=== PATIENT | female | born 1980 | race Caucasian/White ===

== ENCOUNTER 2016-02-26 11:16 | Outpatient (CLI) | payer MEDICAID | END 2016-02-26 11:17 | disposition home or self-care (01) | DX: Z13.29 Encounter for screening for other suspected endocrine disorder (principal) ==

== ENCOUNTER 2016-04-29 09:29 | Outpatient (CLI) | payer MEDICAID | END 2016-04-29 09:30 | disposition home or self-care (01) | DX: O13.9 Gestational [pregnancy-induced] hypertension without significant proteinuria, unspecified trimester (principal); E78.5 Hyperlipidemia, unspecified; E03.9 Hypothyroidism, unspecified ==

== ENCOUNTER 2016-06-30 08:58 | Outpatient (CLI) | payer OTHER ==
[2016-06-30 10:45] LABS: BASOPHILS # (AUTO) 0.1 10^3/uL (0.0-0.1); EOSINOPHILS # (AUTO) 0.2 10^3/uL (0.0-0.7); EOSINOPHILS % (AUTO) 3.1 %; HCT - HEMATOCRIT 36.9 % (37.0-47.0); LYMPHOCYTES # (AUTO) 1.5 10^3/uL (1.5-3.5); LYMPHOCYTES % (AUTO) 28.2 %; MEAN CORPUSCULAR HEMOGLOBIN 33.2 pg (27.0-31.0); MEAN CORPUSCULAR HGB CONC 35.1 g/dL (32.0-36.0); MEAN CORPUSCULAR VOLUME 94.8 fL (81.0-99.0); MEAN PLATELET VOLUME 9.6 fL (7.9-10.8); MONOCYTES # (AUTO) 0.4 10^3/uL (0.0-1.0); MONOCYTES % (AUTO) 7.6 %; NEUTROPHILS # (AUTO) 3.1 10^3/uL (1.5-6.6); NEUTROPHILS % (AUTO) 60.1 %; RED CELL DISTRIBUTION WIDTH 13.1 % (12.0-15.0); UNCORRECTED WHITE BLOOD COUNT 5.2 x10^3/uL; WHITE BLOOD COUNT 5.2 x10^3/uL (4.8-10.8)
[2016-06-30 10:54] LABS: BILIRUBIN,DIRECT 0.1 mg/dL (0.1-0.5); BILIRUBIN,TOTAL 0.5 mg/dL (0.2-1.0); CHOL/HDL RATIO 3.5 (<4.4); CHOLESTEROL 188 mg/dL; HDL CHOLESTEROL 54 mg/dL; IRON 97 ug/dL (28-170); LDL/HDL RATIO 1.9 (<4.4); TOTAL IRON BINDING CAPACITY 392 ug/dL (250-450); TOTAL PROTEIN 7.2 g/dL (6.7-8.2); TRANSFERRIN 280 mg/dL (192-382); TRIGLYCERIDES 168 mg/dL; VLDL CHOLESTEROL 34 mg/dL
== END 2016-06-30 08:59 | disposition home or self-care (01) ==
LOC: LAB.F 08:58
PROVIDERS: ATTEND Nurse Practitioner Family
DX: E78.5 Hyperlipidemia, unspecified (principal); D64.9 Anemia, unspecified
CPT/HCPCS: 36415; 80061; 80076; 82728; 83540; 84466; 85025

== ENCOUNTER 2017-03-09 07:39 | Outpatient (CLI) | payer OTHER ==
[2017-03-09 12:11] LABS: BASOPHILS % (AUTO) 0.6 %; EOSINOPHILS # (AUTO) 0.1 10^3/uL (0.0-0.7); EOSINOPHILS % (AUTO) 1.8 %; LYMPHOCYTES # (AUTO) 2.3 10^3/uL (1.5-3.5); LYMPHOCYTES % (AUTO) 33.3 %; MEAN CORPUSCULAR HEMOGLOBIN 33.2 pg (27.0-31.0); MEAN CORPUSCULAR HGB CONC 34.9 g/dL (32.0-36.0); MEAN CORPUSCULAR VOLUME 95.1 fL (81.0-99.0); MEAN PLATELET VOLUME 9.3 fL (7.9-10.8); MONOCYTES # (AUTO) 0.4 10^3/uL (0.0-1.0); NEUTROPHILS % (AUTO) 58.3 %; PLT - PLATELET COUNT 318 10^3/uL (130-450); RED BLOOD COUNT 3.92 10^6/uL (4.20-5.40); RED CELL DISTRIBUTION WIDTH 12.6 % (12.0-15.0); WHITE BLOOD COUNT 6.9 x10^3/uL (4.8-10.8)
[2017-03-09 12:41] LABS: THYROID STIMULATING HORMONE 0.53 uIU/mL (0.34-5.60)
[2017-03-09 12:42] LABS: FREE T4 (FREE THYROXINE) 0.91 ng/dL (0.58-1.64)
[2017-03-09 12:44] LABS: ALBUMIN 4.2 g/dL (3.2-5.5); ALBUMIN/GLOBULIN RATIO 1.4 (1.0-2.2); ALKALINE PHOSPHATASE 52 IU/L (42-121); ALT ALANINE AMINOTRANSFERASE 11 IU/L (10-60); AST ASPARTATE AMINOTRANSFERASE 15 IU/L (10-42); BILIRUBIN,TOTAL 0.6 mg/dL (0.2-1.0); BUN - BLOOD UREA NITROGEN 19 mg/dL (6-20); CALCIUM 8.9 mg/dL (8.5-10.3); CARBON DIOXIDE - CO2 26 mmol/L (21-32); CHLORIDE 104 mmol/L (101-111); CHOL/HDL RATIO 5.3 (<4.4); CHOLESTEROL 310 mg/dL; CREATININE 0.6 mg/dL (0.4-1.0); GFR - MDRD 112 (>89); GLUCOSE 92 mg/dL (70-100); HDL CHOLESTEROL 59 mg/dL; LDL CHOLESTEROL,CALCULATED 194 mg/dL; LDL/HDL RATIO 3.3 (<4.4); SODIUM 136 mmol/L (135-145); TOTAL PROTEIN 7.2 g/dL (6.7-8.2); VLDL CHOLESTEROL 57 mg/dL
== END 2017-03-09 07:40 | disposition home or self-care (01) ==
LOC: LAB.F 07:39
PROVIDERS: ATTEND Nurse Practitioner Family
DX: R53.83 Other fatigue (principal); E78.5 Hyperlipidemia, unspecified; E03.9 Hypothyroidism, unspecified
CPT/HCPCS: 36415; 80053; 80061; 83721; 84439; 84443; 85025

== ENCOUNTER 2017-03-24 09:00 | Outpatient (CLI) | payer OTHER | END 2017-03-24 09:01 | disposition home or self-care (01) | LOC: LAB.R 09:00 | PROVIDERS: ATTEND Nurse Practitioner Family | DX: D64.9 Anemia, unspecified (principal) | CPT/HCPCS: 82270 ==

== ENCOUNTER 2017-04-02 13:17 | Outpatient (CLI) | payer OTHER | END 2017-04-02 13:18 | disposition home or self-care (01) | LOC: LAB.R 13:17 | PROVIDERS: ATTEND Registered Nurse | DX: Z30.430 Encounter for insertion of intrauterine contraceptive device (principal) | CPT/HCPCS: 87491; 87591 ==

== ENCOUNTER 2017-05-12 12:14 | Outpatient (CLI) | payer OTHER ==
[2017-05-12 13:23] LABS: ALBUMIN 4.7 g/dL (3.2-5.5); ALKALINE PHOSPHATASE 77 IU/L (42-121); ALT ALANINE AMINOTRANSFERASE 22 IU/L (10-60); AST ASPARTATE AMINOTRANSFERASE 20 IU/L (10-42); BILIRUBIN,DIRECT 0.1 mg/dL (0.1-0.5); BILIRUBIN,TOTAL 0.7 mg/dL (0.2-1.0); CHOL/HDL RATIO 2.5 (<4.4); CHOLESTEROL 109 mg/dL; HDL CHOLESTEROL 44 mg/dL; LDL CHOLESTEROL,CALCULATED 43 mg/dL; TOTAL PROTEIN 7.4 g/dL (6.7-8.2); VLDL CHOLESTEROL 22 mg/dL
[2017-05-12 14:10] LABS: THYROID STIMULATING HORMONE < 0.08 uIU/mL (0.34-5.60)
[2017-05-12 14:38] LABS: FOLLICLE STIMULATING HORMONE 5.26 mIU/mL
[2017-05-12 14:39] LABS: LUTEINIZING HORMONE 4.61 mIU/mL
== END 2017-05-12 12:15 | disposition home or self-care (01) ==
LOC: LAB 12:14
PROVIDERS: ATTEND Registered Nurse
DX: N95.1 Menopausal and female climacteric states (principal); E78.5 Hyperlipidemia, unspecified
CPT/HCPCS: 80061; 80076; 82670; 83001; 83002; 83721; 84443

== ENCOUNTER 2017-05-28 10:43 | Outpatient (CLI) | payer OTHER ==
[2017-05-28 12:19] LABS: T4 (THYROXINE) 8.15 ug/dL (6.09-12.23)
[2017-05-28 12:26] LABS: FREE T4 (FREE THYROXINE) 0.82 ng/dL (0.58-1.64)
== END 2017-05-28 10:44 | disposition home or self-care (01) ==
LOC: LAB 10:43
PROVIDERS: ATTEND Registered Nurse
DX: E07.9 Disorder of thyroid, unspecified (principal)
CPT/HCPCS: 36415; 84436; 84439; 86376; 86800

== ENCOUNTER 2017-06-26 09:39 | Outpatient (CLI) | payer OTHER ==
[2017-06-26 10:55] LABS: T4 (THYROXINE) 7.33 ug/dL (6.09-12.23)
[2017-06-26 10:59] LABS: THYROID STIMULATING HORMONE 1.82 uIU/mL (0.34-5.60)
[2017-06-26 11:02] LABS: FREE T4 (FREE THYROXINE) 0.59 ng/dL (0.58-1.64)
== END 2017-06-26 09:40 | disposition home or self-care (01) ==
LOC: LAB 09:39
PROVIDERS: ATTEND Registered Nurse
DX: E03.8 Other specified hypothyroidism (principal)
CPT/HCPCS: 36415; 84436; 84439; 84443

== ENCOUNTER 2019-03-09 15:06 | Outpatient (CLI) | payer OTHER ==
[2019-03-09 17:21] LABS: BASOPHILS % (AUTO) 0.6 %; EOSINOPHILS # (AUTO) 0.1 10^3/uL (0.0-0.7); EOSINOPHILS % (AUTO) 2.1 %; HGB - HEMOGLOBIN 12.6 g/dL (12.0-16.0); LYMPHOCYTES # (AUTO) 1.7 10^3/uL (1.5-3.5); LYMPHOCYTES % (AUTO) 27.3 %; MEAN CORPUSCULAR HGB CONC 32.7 g/dL (32.0-36.0); MEAN CORPUSCULAR VOLUME 97.7 fL (81.0-99.0); MEAN PLATELET VOLUME 11.6 fL (7.9-10.8); MONOCYTES # (AUTO) 0.3 10^3/uL (0.0-1.0); MONOCYTES % (AUTO) 5.3 %; NEUTROPHILS % (AUTO) 64.2 %; PLT - PLATELET COUNT 324 10^3/uL (130-450); RED BLOOD COUNT 3.94 10^6/uL (4.20-5.40); RED CELL DISTRIBUTION WIDTH 11.8 % (12.0-15.0); WHITE BLOOD COUNT 6.3 x10^3/uL (4.8-10.8)
[2019-03-09 18:13] LABS: ALBUMIN 4.6 g/dL (3.2-5.5); ALBUMIN/GLOBULIN RATIO 1.7 (1.0-2.2); BILIRUBIN,TOTAL 0.6 mg/dL (0.2-1.0); CALCIUM 9.1 mg/dL (8.5-10.3); CREATININE 0.7 mg/dL (0.4-1.0); TOTAL PROTEIN 7.3 g/dL (6.7-8.2)
== END 2019-03-09 15:07 | disposition home or self-care (01) ==
LOC: LAB.S 15:06
PROVIDERS: ATTEND Nurse Practitioner Family
DX: R42 Dizziness and giddiness (principal)
CPT/HCPCS: 36415; 80053; 84443; 85025

== ENCOUNTER 2021-06-29 08:00 | Outpatient (CLI) | payer OTHER ==
[2021-06-29 21:13] LABS: BACTERIAL VAGINOSIS DNA NEGATIVE (NEGATIVE); CANDIDA GLABRATA DNA NEGATIVE (NEGATIVE); CANDIDA GROUP DNA NEGATIVE (NEGATIVE); CANDIDA KRUSEI DNA NEGATIVE (NEGATIVE); TRICHOMONAS VAGINALIS DNA NEGATIVE (NEGATIVE)
== END 2021-06-29 23:59 | disposition home or self-care (01) ==
LOC: LAB.S 08:00
PROVIDERS: ATTEND Physician Assistant
DX: R10.9 Unspecified abdominal pain (principal); N89.8 Other specified noninflammatory disorders of vagina
CPT/HCPCS: 81514; 87086

== ENCOUNTER 2021-12-29 08:53 | Emergency (ER) | payer OTHER ==
--- NOTE | 2021-12-29 10:24 | ED Physician Documentation ---
PD HPI URI - Stated complaint Stated Complaint: EAR PX - Chief complaint Chief Complaint: Heent - History obtained from History obtained from: Patient - Additional information Additional information: Pt is a 41 yo F presenting with ongoing sinus congestion for few weeks. She had URI symptoms recently and then developed sinus infection. She completed a course of Bactrim a week ago but her sinus symptoms have not resolved and now she is feeling pressure and fullness in both ears. Reports ongoing nasal congestion. Denies fever, cough, CP, SOB. Review of Systems Constitutional: denies: Fever Ears: reports: Ear pain Cardiac: denies: Chest pain / pressure Respiratory: denies: Dyspnea, Cough GI: denies: Abdominal Pain Musculoskeletal: denies: Back pain Neurologic: denies: Headache PD PAST MEDICAL HISTORY - Past Medical History Endocrine/Autoimmune: HyPOthyroidism GI: GERD Psych: Depression, Anxiety - Past Surgical History Past Surgical History: Yes HEENT: Tonsil/Adenoidectomy - Present Medications Home Medications: Ambulatory Orders Medication Instructions Recorded Confirmed Escitalopram [Lexapro] 10 mg PO DAILY 12/29/21 12/29/21 Losartan Potassium 25 mg PO DAILY 12/29/21 12/29/21 levoFLOXacin [Levaquin] 750 mg PO DAILY 7 Days #21 tablet 12/29/21 - Allergies Allergies/Adverse Reactions: Allergies Allergy/AdvReac Type Severity Reaction Status Date / Time amoxicillin AdvReac Nausea Verified 12/29/21 09:27 codeine AdvReac Nausea Verified 12/29/21 09:27 erythromycin base AdvReac Nausea Verified 12/29/21 09:27 Penicillins AdvReac Nausea Verified 12/29/21 09:27 - Social History Does the pt smoke?: No Smoking Status: Never smoker Does the pt drink ETOH?: No Does the pt have substance abuse?: No - Immunizations Immunizations are current?: Yes PD ED PE NORMAL - General General: Alert and oriented X 3, No acute distress, Well developed/nourished - HEENT HEENT: Atraumatic, Ears normal, Moist mucous membranes, Pharynx benign, Other (Maxillary sinus fullness and tenderness) - Neck Neck: Supple, no meningeal sign - Cardiac Cardiac: RRR - Respiratory Respiratory: No respiratory distress, Clear bilaterally - Derm Derm: Warm and dry Results - Vitals Vitals: Vital Signs - 24 hr 12/29/21 12/29/21 09:23 10:29 Temperature 36.5 C Heart Rate 84 85 Respiratory 16 17 Rate Blood Pressure 165/102 H 135/70 H O2 Saturation 100 98 Oxygen O2 Source Room air PD MEDICAL DECISION MAKING - ED course ED course: Pt with sinus symptoms for several weeks, did not resolve with Bactrim. Given symptoms for several weeks will opt to treat with antibiotics. Has amoxicillin allergy so will Rx levaquin. Pt otherwise well appearing, not septic. Counseled on concerning symptoms to return for. Departure - Departure Disposition: Home, Self Care Clinical Impression: Acute sinusitis Qualifiers: Sinusitis location: maxillary Recurrence: not specified as recurrent Qualified Code(s): J01.00 - Acute maxillary sinusitis, unspecified Condition: Stable Instructions: ED Sinusitis Abx Tx Prescriptions: levoFLOXacin [Levaquin] 750 mg PO DAILY 7 Days #21 tablet Comments: I believe your symptoms are related to a sinus infection that may not have been completely treated with Bactrim. I have started you on a different antibiotic that will cover for other organisms called the Wilfrido and sent this prescription to [facility] in [place].I would continue with acetaminophen or ibuprofen as needed for fevers. You do have high blood pressure so you do need to use caution with medication such as Sudafed but I do think that a few doses if needed are reasonable.Please call your primary care doctor for close follow- up if your symptoms or not improving. Discharge Date/Time: 12/29/21 10:30
[2021-12-29 10:30] VITALS: BP 135/70
== END 2021-12-29 10:30 | disposition home or self-care (01) ==
LOC: ED 08:53
DX: J01.00 Acute maxillary sinusitis, unspecified (principal)
CPT/HCPCS: 99282

== ENCOUNTER 2022-01-13 11:02 | Outpatient (CLI) | payer OTHER ==
--- NOTE | 2022-01-13 13:05 | CT Report ---
PROCEDURE: SINUS SCREENING WO INDICATIONS: SINUSITIS TECHNIQUE: Noncontrast 3.0 mm axial images acquired from the frontal sinuses to the mid-sella, with coronal and sagittal reformats. For radiation dose reduction, the following was used: automated exposure control , adjustment of mA and/or kV according to patient size. COMPARISON: None. FINDINGS: Image quality: Excellent. Maxillary Sinuses: Moderate mucosal thickening is seen within the maxillary sinuses, left worse zelalem n right. There is mineralization seen of the medial hummel of the maxillary sinuses, left worse than r ight. Air-fluid levels can be seen within the maxillary sinuses. Ethmoid Air Cells: But mucosal thickening is seen within the ethmoid air cells, with mild generalized bony demineralization. Sphenoid Sinuses: Moderate mucosal thickening with air-fluid levels can be seen within the sphenoid s inuses. No definite bony abnormalities are seen. Frontal Sinuses: Mild to moderate mucosal thickening is seen within the frontal sinuses, left worse than right. The flow within the frontal sinuses demonstrates a frothy appearance. No definite bony de struction can be seen. Ostiomeatal Complexes: Ostiomeatal complexes are patent, yet they are constitutionally narrowed, wit h bilateral Samir cells. Miscellaneous: Visualized intra-orbital contents are normal. There is a small right-sided phillip bul losa. There is mild leftward nasal septal deviation. There is at least moderate abnormal fluid seen within the mastoid air cells on both sides. IMPRESSION: Generalized paranasal sinus disease is seen, which is worst within the left maxillary sinus. Areas of bony demineralization are seen, which are consistent with chronic sinusitis. Air-fluid levels are seen, which are commonly observed in patients with acute sinusitis. The ostiomeatal complexes are patent, yet they are constitutionally narrowed, with bilateral Samir c ells. There is a right-sided phillip bullosa seen, with mild leftward nasal septal deviation. At least moderate abnormal fluid can be seen within the mastoid air cells on both sides. Reviewed by: Dusty Perla MD on 01/13/2022 12:04 PM [facility] Approved by: Dusty Perla MD on 01/13/2022 12:04 PM [facility] Station ID: [id number]
== END 2022-01-13 11:03 | disposition home or self-care (01) ==
LOC: DI 11:02
PROVIDERS: ATTEND Registered Nurse
DX: J01.40 Acute pansinusitis, unspecified (principal); J34.2 Deviated nasal septum

== ENCOUNTER 2022-01-13 11:03 | Outpatient (CLI) | payer OTHER ==
--- NOTE | 2022-01-13 13:31 | Ultrasound Report ---
PROCEDURE: Head or Neck Soft Tissue INDICATIONS: GOITER TECHNIQUE: Real-time scanning was performed of the thyroid gland, with image documentation. COMPARISON: None. FINDINGS: Right: 3.6 x 1.3 x 1.3 cm, homogeneous without nodules Left: 3.7 x 1.1 x 1.3 cm, homogeneous without nodules. Isthmus: 3 mm There is a normal caliber benign-appearing left anterior cervical lymph node measuring 7 mm in maximu m diameter. IMPRESSION: Unremarkable thyroid ultrasound. Reviewed by: Kaz Schafer MD on 01/13/2022 1:30 PM PST Approved by: Kaz Schafer MD on 01/13/2022 1:30 PM PST Station ID: [id number]
== END 2022-01-13 11:04 | disposition home or self-care (01) ==
LOC: DI 11:03
PROVIDERS: ATTEND Registered Nurse
DX: E04.9 Nontoxic goiter, unspecified (principal)

== ENCOUNTER 2022-12-30 08:35 | Outpatient (CLI) | payer OTHER ==
[2022-12-30 14:43] LABS: BASOPHILS # (AUTO) 0.1 10^3/uL (0.0-0.1); BASOPHILS % (AUTO) 0.8 %; EOSINOPHILS # (AUTO) 0.1 10^3/uL (0.0-0.7); EOSINOPHILS % (AUTO) 2.2 %; HCT - HEMATOCRIT 37.8 % (37.0-47.0); HGB - HEMOGLOBIN 12.2 g/dL (12.0-16.0); LYMPHOCYTES # (AUTO) 1.9 10^3/uL (1.5-3.5); LYMPHOCYTES % (AUTO) 29.6 %; MEAN CORPUSCULAR HEMOGLOBIN 31.5 pg (27.0-31.0); MEAN CORPUSCULAR HGB CONC 32.3 g/dL (32.0-36.0); MEAN CORPUSCULAR VOLUME 97.7 fL (81.0-99.0); MEAN PLATELET VOLUME 11.4 fL (7.9-10.8); MONOCYTES # (AUTO) 0.4 10^3/uL (0.0-1.0); NEUTROPHILS # (AUTO) 3.8 10^3/uL (1.5-6.6); NEUTROPHILS % (AUTO) 60.1 %; PLT - PLATELET COUNT 335 10^3/uL (130-450); RED BLOOD COUNT 3.87 10^6/uL (4.20-5.40); RED CELL DISTRIBUTION WIDTH 12.3 % (12.0-15.0); WHITE BLOOD COUNT 6.3 x10^3/uL (4.8-10.8)
[2022-12-30 16:23] LABS: ALBUMIN 4.5 g/dL (3.2-5.5); ALBUMIN/GLOBULIN RATIO 2.4 (1.0-2.2); BILIRUBIN,TOTAL 0.5 mg/dL (0.2-1.0); CALCIUM 9.1 mg/dL (8.5-10.3); CREATININE 0.7 mg/dL (0.6-1.3); POTASSIUM 3.8 mmol/L (3.5-4.5); TOTAL PROTEIN 6.4 g/dL (6.4-8.9)
== END 2022-12-30 08:36 | disposition home or self-care (01) ==
LOC: LAB.S 08:35
PROVIDERS: ATTEND Nurse Practitioner
DX: R10.9 Unspecified abdominal pain (principal)
CPT/HCPCS: 36415; 80053; 82150; 83690; 85025

== ENCOUNTER 2023-01-03 22:19 | Outpatient (CLI) | payer OTHER | END 2023-01-03 22:20 | disposition critical access hospital (66) | LOC: EMS 22:19 | DX: R07.89 Other chest pain (principal); R20.2 Paresthesia of skin; R42 Dizziness and giddiness; F41.9 Anxiety disorder, unspecified | CPT/HCPCS: A0425; A0427 ==

== ENCOUNTER 2023-01-03 22:47 | Emergency (ER) | payer OTHER ==
[2023-01-03 23:37] LABS: BASOPHILS # (AUTO) 0.1 10^3/uL (0.0-0.1); BASOPHILS % (AUTO) 0.7 %; EOSINOPHILS # (AUTO) 0.1 10^3/uL (0.0-0.7); EOSINOPHILS % (AUTO) 0.9 %; HCT - HEMATOCRIT 39.1 % (37.0-47.0); LYMPHOCYTES # (AUTO) 1.8 10^3/uL (1.5-3.5); LYMPHOCYTES % (AUTO) 17.3 %; MEAN CORPUSCULAR HEMOGLOBIN 31.9 pg (27.0-31.0); MEAN CORPUSCULAR HGB CONC 33.2 g/dL (32.0-36.0); MEAN CORPUSCULAR VOLUME 95.8 fL (81.0-99.0); MEAN PLATELET VOLUME 11.1 fL (7.9-10.8); MONOCYTES # (AUTO) 0.5 10^3/uL (0.0-1.0); MONOCYTES % (AUTO) 4.7 %; NEUTROPHILS % (AUTO) 76.1 %; PLT - PLATELET COUNT 365 10^3/uL (130-450); RED BLOOD COUNT 4.08 10^6/uL (4.20-5.40); WHITE BLOOD COUNT 10.6 x10^3/uL (4.8-10.8)
--- NOTE | 2023-01-03 23:55 | ED Physician Documentation ---
PD HPI CHEST PAIN - Stated complaint Stated Complaint: CHEST PX - Chief complaint Chief Complaint: Cardiac - History obtained from History obtained from: Patient - Additional information Additional information: 42-year-old female with history of anxiety, depression, hypertension presents by EMS from home for chest pain. Patient has had central, aching, nonradiating chest pain that has been intermittent throughout the last week. Patient cannot identify what makes the pain come or go. Patient started Wellbutrin today for worsening anxiety and depression and is concerned that this may be contributing to her symptoms today. Patient denies family history of heart disease. Denies tobacco use. Review of Systems Constitutional: denies: Fever, Chills Cardiac: reports: Chest pain / pressure. denies: Palpitations, Calf pain Respiratory: denies: Dyspnea, Cough, Wheezing GI: denies: Abdominal Pain, Nausea, Vomiting, Constipation, Diarrhea Psychiatric: reports: Depressed, Anxiety. denies: Suicidal, Homicidal PD PAST MEDICAL HISTORY - Past Medical History Past Medical History: Yes Cardiovascular: None Respiratory: None Neuro: None Endocrine/Autoimmune: HyPOthyroidism GI: GERD, Other PHARMACOEPIDEMIOLOGIST: None : None HEENT: None Psych: Depression, Anxiety Musculoskeletal: None Derm: None Other Past Medical History: gastritis - Past Surgical History Past Surgical History: Yes HEENT: Tonsil/Adenoidectomy - Present Medications Home Medications: Ambulatory Orders Medication Instructions Recorded Confirmed Escitalopram [Lexapro] 10 mg PO DAILY 12/29/21 01/03/23 Losartan Potassium 25 mg PO DAILY 12/29/21 01/03/23 Famotidine [Pepcid] 20 mg PO DAILY 01/03/23 01/03/23 Fexofenadine/Pseudoephedrine 1 tab PO DAILY 01/03/23 01/03/23 [Medina-D 12 Hour Tablet] Omeprazole Magnesium 20 mg PO DAILY 01/03/23 01/03/23 buPROPion HCL [Bupropion Xl] 150 mg PO DAILY 01/03/23 01/03/23 - Allergies Allergies/Adverse Reactions: Allergies Allergy/AdvReac Type Severity Reaction Status Date / Time amoxicillin AdvReac Nausea Verified 01/03/23 22:55 codeine AdvReac Nausea Verified 01/03/23 22:55 erythromycin base AdvReac Nausea Verified 01/03/23 22:55 Penicillins AdvReac Nausea Verified 01/03/23 22:55 - Social History Does the pt smoke?: No Smoking Status: Never smoker Does the pt drink ETOH?: No Does the pt have substance abuse?: No - Immunizations Immunizations are current?: Yes PD ED PE NORMAL - Vitals Vital signs reviewed: Yes - General General: Alert and oriented X 3, No acute distress, Well developed/nourished - HEENT HEENT: Atraumatic - Neck Neck: Supple, no meningeal sign - Cardiac Cardiac: RRR, No murmur, Strong equal pulses - Respiratory Respiratory: No respiratory distress, Clear bilaterally - Abdomen Abdomen: Soft, Non tender, Non distended - Derm Derm: Normal color, Warm and dry, No rash - Extremities Extremities: No deformity, No tenderness to palpate, Normal ROM s pain, No edema - Neuro Neuro: Alert and oriented X 3, optical effects camera operator 2-12 intact, No motor deficit, Normal speech - Psych Psych: Normal mood, Normal affect Results - Vitals Vitals: Vital Signs - 24 hr 01/03/23 01/03/23 01/03/23 22:55 22:57 23:00 Temperature 36.8 C Heart Rate 82 81 Respiratory 18 18 19 Rate Blood Pressure 159/96 H 159/97 H O2 Saturation 99 99 01/03/23 01/04/23 23:30 00:30 Temperature Heart Rate 84 77 Respiratory 21 18 Rate Blood Pressure 165/95 H 170/87 H O2 Saturation 98 100 Oxygen O2 Source Room air - Labs Labs: Laboratory Tests 01/03/23 01/03/23 01/04/23 22:57 22:57 00:05 WBC 10.6 RBC 4.08 L Hgb 13.0 Hct 39.1 MCV 95.8 MCH 31.9 H MCHC 33.2 RDW 12.0 Plt Count 365 MPV 11.1 H Neut # (Auto) 8.0 H Lymph # (Auto) 1.8 [place] # (Auto) 0.5 Eos # (Auto) 0.1 Baso # (Auto) 0.1 Absolute Nucleated RBC 0.00 Nucleated RBC % 0.0 Sodium 140 Potassium 4.1 Chloride 108 Carbon Dioxide 22 Anion Gap 10.0 BUN 10 Creatinine 0.7 Estimated GFR (MDRD) 91 Glucose 118 H Calcium 9.7 Total Bilirubin 0.3 AST 17 ALT 18 Alkaline Phosphatase 74 Troponin I High Sens 2.3 Total Protein 7.1 Albumin 4.9 Globulin 2.2 Albumin/Globulin Ratio 2.2 Urine HCG, Qual NEGATIVE PD Medical Decision Making - ED course Complexity details: reviewed results, re-evaluated patient, considered differential, d/w patient, d/w family ED course: Well-appearing patient with 1 week of chest pain. Heart score 1 due to history of hypertension. EKG is normal sinus rhythm without concerning findings. Patient placed on patient monitor and work-up initiated. Laboratory work is unremarkable. High-sensitivity troponin barely detectable. Patient reassessed, resting comfortably in bed. Patient was counseled on the results of all labs and imaging. Recommended follow-up with cardiology if she continues to experience chest pains. Referral to office coordinator in [place] provided. ED return precautions discussed with patient and at bedside. Departure - Departure Disposition: 01 Home, Self Care Clinical Impression: Chest pain Qualifiers: Chest pain type: unspecified Qualified Code(s): R07.9 - Chest pain, unspecified Condition: Stable Instructions: ED Chest Pain Atypical Unkn Cause Follow-Up: Daniel Cabral MD [Physician No Access] - Bridget Gamble MD [Physician No Access] - Forms: PCP List Discharge Date/Time: 01/04/23 00:56
[2023-01-03 23:59] LABS: ALBUMIN 4.9 g/dL (3.2-5.5); ALBUMIN/GLOBULIN RATIO 2.2 (1.0-2.2); BILIRUBIN,TOTAL 0.3 mg/dL (0.2-1.0); CALCIUM 9.7 mg/dL (8.5-10.3); CREATININE 0.7 mg/dL (0.6-1.3); POTASSIUM 4.1 mmol/L (3.5-4.5); TOTAL PROTEIN 7.1 g/dL (6.4-8.9)
[2023-01-04 00:01] LABS: TROPONIN I HIGH SENSITIVITY 2.3 ng/L (2.3-14.8)
[2023-01-04 00:19] LABS: HCG UR QUAL NEGATIVE
[2023-01-04 00:57] VITALS: BP 170/87; O2SAT 100
--- NOTE | 2023-01-04 01:15 | XRAY Report ---
PROCEDURE: Chest 1 View X-Ray INDICATIONS: CHEST PAIN TECHNIQUE: One view of the chest was acquired. COMPARISON: None. FINDINGS: Surgical changes and devices: None. Lungs and pleura: No pleural effusions or pneumothorax. Lungs are clear. Mediastinum: Mediastinal contours appear normal. Heart size is normal. Bones and chest wall: No suspicious bony lesions. Overlying soft tissues appear unremarkable. IMPRESSION: No acute cardiopulmonary process. Reviewed by: Haim Haq MD on 01/04/2023 1:13 AM [facility] Approved by: Haim Haq MD on 01/04/2023 1:13 AM [facility] Station ID: [id number]
== END 2023-01-04 00:56 | disposition home or self-care (01) ==
LOC: EDUNIT# → ED 22:47
DX: R07.9 Chest pain, unspecified (principal); I10 Essential (primary) hypertension; E03.9 Hypothyroidism, unspecified; Z79.899 Other long term (current) drug therapy; R10.11 Right upper quadrant pain; K76.0 Fatty (change of) liver, not elsewhere classified
CPT/HCPCS: 36415; 80053; 81025; 84484; 85025; 93005; 99283; 99284

== ENCOUNTER 2023-01-04 09:33 | Outpatient (CLI) | payer OTHER ==
--- NOTE | 2023-01-04 14:34 | Ultrasound Report ---
PROCEDURE: Abdomen Limited INDICATIONS: ABD PAIN TECHNIQUE: Real-time focused scanning was performed of the abdomen, with image documentation. COMPARISONS: None. FINDINGS: Liver: Increased liver echogenicity, commonly mild hepatic steatosis. Gallbladder: Unremarkable. Biliary ducts: Intrahepatic bile ducts are non-dilated. Extrahepatic bile duct caliber measures 3 m m. Normal is 6-7 mm or less in diameter, or 10 mm or less post-cholecystectomy. Pancreas: Visualized portions of the pancreas are sonographically normal. Right kidney: Normal in size and echotexture. Right kidney measures 10.6 cm long. No hydronephrosis. Echogenic foci measuring 4 x 5 x 5 mm with posterior shadowing. No solid masses. No complex renal c ystic lesions which require follow-up. Aorta: Visualized aorta is normal in caliber at less than 3 cm. IVC: Intrahepatic inferior vena cava is patent. Miscellaneous: No free abdominal fluid. IMPRESSION: Hepatic steatosis. Probable nonobstructive right renal stone measuring 5 mm. Reviewed by: Sorin Stephen MD on 01/04/2023 1:32 PM [facility] Approved by: Sorin Stephen MD on 01/04/2023 1:32 PM [place] Station ID: [id number]
== END 2023-01-04 09:34 | disposition home or self-care (01) ==
LOC: DI 09:33
PROVIDERS: ATTEND Nurse Practitioner
DX: R10.11 Right upper quadrant pain (principal); K76.0 Fatty (change of) liver, not elsewhere classified

== ENCOUNTER 2023-01-09 11:59 | Emergency (ER) | payer OTHER ==
[2023-01-09] MEDS ORDERED: LOSARTAN 50 MG TABLET PO STA (14:04)
--- NOTE | 2023-01-09 14:06 | ED Physician Documentation ---
History of Present Illness - Stated complaint Stated Complaint: HIGH BP/NAUSEA/HEAD PX - Chief complaint Chief Complaint: General - History obtained from History obtained from: Patient - Additonal information Additional information: 42-year-old woman with history of hypertension on losartan currently 25 mg a day. About a week ago started Wellbutrin and started to feel generally bad. She has since stopped the Wellbutrin. She did note that her blood pressure was high even before she started the Wellbutrin in the range of 160/100. She denies chest pain or trouble breathing. She just feels cut off with some headachy and nauseous feeling. Not a severe headache. PD PAST MEDICAL HISTORY - Past Medical History Cardiovascular: None Respiratory: None Neuro: None Endocrine/Autoimmune: HyPOthyroidism GI: GERD, Other PIPE PROCESSOR: None : None HEENT: None Psych: Depression, Anxiety Musculoskeletal: None Derm: None - Past Surgical History Past Surgical History: Yes HEENT: Tonsil/Adenoidectomy - Present Medications Home Medications: Ambulatory Orders Medication Instructions Recorded Confirmed Escitalopram [Lexapro] 10 mg PO DAILY 12/29/21 01/03/23 Losartan Potassium 25 mg PO DAILY 12/29/21 01/03/23 Famotidine [Pepcid] 20 mg PO DAILY 01/03/23 01/03/23 Fexofenadine/Pseudoephedrine 1 tab PO DAILY 01/03/23 01/03/23 [Medina-D 12 Hour Tablet] Omeprazole Magnesium 20 mg PO DAILY 01/03/23 01/03/23 buPROPion HCL [Bupropion Xl] 150 mg PO DAILY 01/03/23 01/03/23 Losartan Potassium 1 - 4 tab PO DAILY #90 tablet 01/09/23 - Allergies Allergies/Adverse Reactions: Allergies Allergy/AdvReac Type Severity Reaction Status Date / Time amoxicillin AdvReac Nausea Verified 01/03/23 22:55 codeine AdvReac Nausea Verified 01/03/23 22:55 erythromycin base AdvReac Nausea Verified 01/03/23 22:55 Penicillins AdvReac Nausea Verified 01/03/23 22:55 - Social History Does the pt smoke?: No Smoking Status: Never smoker Does the pt drink ETOH?: No Does the pt have substance abuse?: No - Immunizations Immunizations are current?: Yes PD ED PE NORMAL - Vitals Vital signs reviewed: Yes - General General: Alert and oriented X 3, No acute distress - HEENT HEENT: PERRL, EOMI - Neck Neck: Supple, no meningeal sign, No bony TTP - Cardiac Cardiac: RRR, No murmur - Respiratory Respiratory: No respiratory distress, Clear bilaterally - Abdomen Abdomen: Non tender - Neuro Neuro: Alert and oriented X 3, Normal speech Results - Vitals Vitals: Vital Signs - 24 hr 01/09/23 12:30 Temperature 36.8 C Heart Rate 86 Respiratory 20 Rate Blood Pressure 183/93 H O2 Saturation 99 Oxygen O2 Source Room air PD Medical Decision Making - ED course ED course: Had extensive testing done last week with normal blood work and EKG. She is on a low-dose of losartan which we can easily double. Departure - Departure Disposition: 01 Home, Self Care Clinical Impression: Hypertension Qualifiers: Hypertension type: primary hypertension Qualified Code(s): I10 - Essential (primary) hypertension Condition: Good Record reviewed to determine appropriate education?: Yes Instructions: Receptor Blockers Angiotensin, ED Hypertension Conf Out Of Control Prescriptions: Losartan Potassium 1 - 4 tab PO DAILY #90 tablet Comments: You are seen today for elevated blood pressure and it is perfectly reasonable to double your losartan. For now start with 50 mg (2x25 mg tablets) once a day. I am writing a new prescription to bridge you until you see your doctor. If your blood pressure remains persistently well over 140 for the top number you can go up to 75 mg a day. Call your doctor to arrange a follow-up appointment, make the next available appointment. In the interim, return anytime if worse or if new symptoms develop.
[2023-01-09 14:21] VITALS: BP 152/88; O2SAT 100
== END 2023-01-09 14:17 | disposition home or self-care (01) ==
LOC: ED 11:59
DX: I10 Essential (primary) hypertension (principal)
CPT/HCPCS: 99282; 99284; A9270

== ENCOUNTER 2023-02-24 07:42 | Outpatient (CLI) | payer OTHER ==
--- NOTE | 2023-02-25 09:59 | Mammography Report ---
BILATERAL FIRST EVER DIGITAL SCREENING MAMMOGRAM 3D/2D WITH EXAGGERATED CC: 02/24/2023 CLINICAL: Baseline exam. Routine screening. No prior exams were available for comparison. Both breasts are heterogeneously dense, which may obscure small masses (category c / 51-75% glandular tissue). No significant masses, calcifications, or other findings are seen in either breast. IMPRESSION: NEGATIVE There is no mammographic evidence of malignancy. A 1 year screening mammogram is recommended. Based on the Tyrer Cuzick model (a risk assessment model) the patients lifetime risk is 10.4% and he r 10 year risk is 1.8%. According to the ACR, ACS, and NCCN guidelines, an annual breast MRI exam jefe ng with mammogram is recommended if the patients lifetime risk is 20% or greater. This exam was interpreted at Station ID: [id number]. NOTE: For mammograms, a report in lay terms will be sent to the patient. Approximately 15% of breast malignancies will not be visualized mammographically. In the management of a palpable breast mass, a negative mammogram must not discourage biopsy of a clinically suspicious lesion. Electronically Signed By: Dmitry nunes/evelin:02/24/2023 14:54:44 letter sent: No_Letter ACR BI-RADS Category 1: Negative 3341F PARENCHYMAL PATTERN: (D) - The breast(s) demonstrate(s) heterogeneously dense fibroglandular edin snow. BI-RADS CATEGORY: (1) - 1 Mammogram [id number] 1 year screening LATERALITY: (B)
== END 2023-02-24 07:43 | disposition home or self-care (01) ==
LOC: DI.S 07:42
PROVIDERS: ATTEND Nurse Practitioner
DX: Z12.31 Encounter for screening mammogram for malignant neoplasm of breast (principal); R92.333 Mammographic heterogeneous density, bilateral breasts

== ENCOUNTER 2023-03-16 08:51 | Outpatient (CLI) | payer OTHER ==
[2023-03-16 16:52] LABS: THYROID STIMULATING HORMONE 3.23 uIU/mL (0.34-5.60)
[2023-03-17 20:08] LABS: THYROGLOBULIN ANTIBODY <1.0 IU/mL (0.0-0.9); THYROID PEROXIDASE (TPO) AB <9 IU/mL (0-34)
[2023-03-18 15:09] LABS: ANTINUCLEAR ANTIBODIES IFA Negative (.)
== END 2023-03-16 08:52 | disposition home or self-care (01) ==
LOC: LAB.S 08:51
PROVIDERS: ATTEND Registered Nurse
DX: E07.9 Disorder of thyroid, unspecified (principal)
CPT/HCPCS: 36415; 84439; 84443; 84481; 86038; 86376; 86800

== ENCOUNTER 2023-06-23 12:27 | Day surgery (SDC) | payer OTHER ==
[2023-06-23] MEDS: LACTATED RINGERS 1,000 ML IV ONE ×2 (12:30→15:40)
[2023-06-23] MEDS ORDERED: POTASSIUM IODIDE/IODINE 14 ML SOLUTION ONE (14:03)
[2023-06-23] MEDS ORDERED: BUPIVACAINE 0.5% PF 10 ML VIAL ONE (14:03)
--- NOTE | 2023-06-23 14:06 | HISTORY & PHYSICAL EXAMINATION ---
HPI - History of Present Illness HPI Comment/Other: Patient is a 43-year-old -0-1-2 presents today for a LEEP procedure. I saw her in April for preoperative valuation and she says nothing is changed since then. She has SURINDER-2 at 12:00. She had ASCUS prior to the colposcopy. She does desire mild sedation for the procedure. Otherwise doing well. All other symptoms reviewed and were negative except per HPI. PMH SURINDER 2, moderate cervical dysplasia (ICD-622.12) (UNH58-X67.1) Bacterial sinusitis (QER13-E84.9) Thyroid disease (ICD-246.9) (KYU36-F89.9) Screening for (ICD-V72.40) (UHT47-F08.00) ASCUS Pap (ICD-795.01) (FHI86-S87.610) Cervical high risk human papillomavirus (HPV) DNA test positive (ICD-795.05) (YPM49-L84.810) Screening mammogram for breast cancer (ICD-V76.12) (ZKC97-Y85.31) Encounter for gynecological examination (general) (routine) without abnormal findings (XUH25-C43.419) Elevated blood pressure (ICD-796.2) (QVJ63-F21.0) Chest pain, unspecified (WSE09-Q26.9) Encounter for screening for malignant neoplasm of cervix (ICD-V76.2) (ICD10- Z12.4) Unspecified abdominal pain (WPD28-P72.9) Urinary tract infection (UTI) (ICD-599.0) (TEH92-O77.0) Mastoiditis, bilateral (ICD-383.9) (VXG09-V40.93) Blocked tear duct (ICD-375.53) (QEI80-L49.89) Irritation of eye, right (ICD-379.99) (HXF61-N08.89) Nonspecific syndrome suggestive of viral illness (ICD-079.99) (XJP58-I27.89) Gastritis (ICD-535.50) (MBU44-D74.70) Fatigue and malaise (ICD-780.79) (IXF14-S75.83) HTN, benign essential (ICD-401.1) (KKM18-Q50) Anemia (ICD-285.9) (MJF65-O31.9) Keloid scar (ICD-701.4) (ILL67-P58.0) Well adult exam (ICD-V70.0) (DAI06-O25.00) Anxiety NOS (ICD-300.00) (NTU71-S78.9) Gastro-esophageal reflux disease with esophagitis (ICD-530.11) (ALR09-E97.0) Hyperlipidemia (ICD-272.4) (KCC45-B33.5) Hypothyroid (ICD-244.9) (UBP59-B75.9) PSH Tonsils: 1992 section 2016 SH Denies tobacco, alcohol, drugs Family History Mother: Thyroid disease hypertension, high cholesterol Father: Melanoma Sister: Healthy Allergies Penicillin: Vomiting Codeine: Vomiting Amoxicillin: Vomiting Erythromycin: Vomiting Medications Bactrim DS 800-160 mg tablet (sulfamethoxazole-trimethoprim) Take 1 tablet by mouth twice a day prednisone 20 mg tablet (prednisone) Take 2 tablet by mouth every morning hydrochlorothiazide 25 mg tablet (hydrochlorothiazide) amlodipine 5 mg tablet (amlodipine) escitalopram oxalate 10 mg tablet (escitalopram oxalate) alprazolam 0.25 mg tablet (alprazolam) losartan 25 mg tablet (losartan) Nexium 20 mg capsule,delayed release(DR/EC) (esomeprazole magnesium) Take 1 tablet by mouth every night Physical exam: Physical exam: Constitutional: alert, oriented, no acute distress Cardiovascular: Regular rate and rhythm. No murmurs, rubs, gallops. Respiratory: No respiratory distress. Clear to auscultation bilaterally. Abdomen: Soft, non-tender. Extremities: No swelling or tenderness. No cords. Distal pulses intact. Psych: affect and mood appropriate, normal interaction, good eye contact. Plan SURINDER II -Plan for LEEP procedure in the OR. Discussed risk, benefits, alternatives to the procedure. Patient agrees with plan and will proceed to the OR. PMH/PSH - Past Medical History Cardiovascular: positive: Hypertension, High cholesterol Respiratory: positive: None Neuro: positive: None Endocrine/Autoimmune: positive: HyPOthyroidism GI: positive: GERD, Other CONDENSER WINDER: positive: None : positive: None HEENT: positive: Chronic vision loss, Chronic sinusitis Psych: positive: Depression, Anxiety, Panic attacks Musculoskeletal: positive: None Derm: positive: Other MRSA Hx?: No - Past Surgical History /CONDENSER WINDER: positive: section HEENT: positive: Tonsil/Adenoidectomy Social & Family Hx - Social History Does the pt smoke?: No Smoking Status: Never smoker Does the pt drink ETOH?: No Does the pt have substance abuse?: No Meds/Allgy - Home Medications Home Medications: Ambulatory Orders Medication Instructions Recorded Confirmed Escitalopram [Lexapro] 10 mg PO DAILY 12/29/21 06/22/23 Losartan Potassium 75 mg PO DAILY 12/29/21 06/22/23 ALPRAZolam [Xanax] 0.25 mg PO ONCE PRN 05/08/23 05/08/23 Cetirizine HCl [Allergy] 10 mg PO DAILY 05/08/23 06/22/23 Esomeprazole Magnesium [Nexium 20 mg PO DAILY 05/08/23 06/22/23 24Hr] amLODIPine [Norvasc] 5 mg PO DAILY 05/08/23 06/22/23 hydroCHLOROthiazide [Hydrodiuril] 25 mg PO DAILY 05/08/23 06/22/23 - Allergies Allergies/Adverse Reactions: Allergies Allergy/AdvReac Type Severity Reaction Status Date / Time amoxicillin AdvReac Nausea Verified 06/22/23 12:26 codeine AdvReac Nausea Verified 06/22/23 12:26 erythromycin base AdvReac Nausea Verified 06/22/23 12:26 Penicillins AdvReac Nausea Verified 06/22/23 12:26
[2023-06-23] MEDS ORDERED: PROPOFOL 500 MG/50 ML 500 MG/50 ML VIAL ONE (14:25)
[2023-06-23] MEDS ORDERED: ONDANSETRON 4 MG/2 ML VIAL ONE (14:25)
[2023-06-23] MEDS ORDERED: MIDAZOLAM 2 MG/2 ML VIAL ONE (14:28)
[2023-06-23 14:31] LABS: HCG UR QUAL NEGATIVE
[2023-06-23] MEDS ORDERED: LIDOCAINE 1%-EPI 1:100000 20 ML MDV ONE (14:50)
[2023-06-23] MEDS ORDERED: KETAMINE 200 MG/20 ML VIAL ONE (14:57)
--- NOTE | 2023-06-23 15:10 | ANESTHESIA ---
Pre-Anesthesia VS, & Labs - Diagnosis CIN2 - Procedure LEEP Height: 5 ft 5 in Weight (kg): 70.5 kg Body Mass Index: 25.8 BMI Classification: Overweight - NPO Other (6hrs light meal- cookie) - Is Patient ?: No Home Medications and Allergies Home Medications: Ambulatory Orders ALPRAZolam [Xanax] 0.25 mg PO ONCE PRN 05/08/23 Cetirizine HCl [Allergy] 10 mg PO DAILY 05/08/23 Esomeprazole Magnesium [Nexium 24Hr] 20 mg PO DAILY 05/08/23 amLODIPine [Norvasc] 5 mg PO DAILY 05/08/23 hydroCHLOROthiazide [Hydrodiuril] 25 mg PO DAILY 05/08/23 Escitalopram [Lexapro] 10 mg PO DAILY 12/29/21 Losartan Potassium 75 mg PO DAILY 12/29/21 ALPRAZolam [Xanax] 0.25 mg PO ONCE PRN 05/08/23 Cetirizine HCl [Allergy] 10 mg PO DAILY 05/08/23 Esomeprazole Magnesium [Nexium 24Hr] 20 mg PO DAILY 05/08/23 amLODIPine [Norvasc] 5 mg PO DAILY 05/08/23 hydroCHLOROthiazide [Hydrodiuril] 25 mg PO DAILY 05/08/23 Allergies/Adverse Reactions: Allergies Allergy/AdvReac Type Severity Reaction Status Date / Time amoxicillin AdvReac Nausea Verified 06/22/23 12:26 codeine AdvReac Nausea Verified 06/22/23 12:26 erythromycin base AdvReac Nausea Verified 06/22/23 12:26 Penicillins AdvReac Nausea Verified 06/22/23 12:26 Anes History & Medical History - Anesthetic History Anesthesia Complications: reports: No previous complications Family history of Anesthesia Complications: Denies Family history of Malignant Hyperthermia: Denies - Medical History Cardiovascular: reports: Hypertension, High cholesterol Pulmonary: reports: None Gastrointestinal: reports: GERD, Other Urinary: reports: None Neuro: reports: None Musculoskeletal: reports: None Endocrine/Autoimmune: reports: HyPOthyroidism Blood Disorders: reports: None Skin: reports: Other Smoking Status: Never smoker Psychosocial: reports: No issues indicated - Surgical History Eyes Ears Nose Throat (EENT): reports: Tonsil/Adenoidectomy Gynecologic: reports: section Exam General: Alert Dental: WNL Mouth Openin Fingerbreadth Neck Mobility: Normal Mallampati classification: I Thyromental Distance: 4-6 cm Respiratory: Lungs clear Cardiovascular: Regular rate Plan Anesthesia Type: General, Total IV Consent for Procedure(s) Verified and Reviewed: Yes Code Status: Attempt Resuscitation ASA classification: 2-Mild systemic disease Is this case an emergency?: No
[2023-06-23] MEDS ORDERED: PROPOFOL 200 MG/20 ML VIAL IVP ONE (15:22)
[2023-06-23] MEDS: LIDOCAINE 1%-EPI 1:100000 50 ML VIAL IJ ONE (15:44)
[2023-06-23 15:47] VITALS: O2SAT 98
--- NOTE | 2023-06-23 15:58 | OPERATIVE REPORT ---
Operative Report - General Procedure Date: 06/23/23 Planned Procedure: LEEP conization Pre-Op Diagnosis: SURINDER-2 Procedure Performed: LEEP conization Post Op Diagnosis: Same - Procedure Note Primary Surgeon: Evan Pickard MD Anesthesia Provider: Preethi Brooke CRNA Anesthesia Technique: Other (IV general) Pathology: Anterior cervix/cervical polyp 6:00 cervical biopsy Estimated Blood Loss (mL): 20 Findings: Mass vs atypia of entire transformation zone. Upon conization, anterior cervix easily detached. Minimal bleeding. Complications: None - Other Other Information/Narrative: After informed consent was obtained, patient was taken to the operating room where IV general anesthesia was obtained. She was placed in the dorsolithotomy position with great white stirrups. The perineum was cleansed with Hibiclens. Timeout was taken. Sterile, coated speculum was used to visualize the cervix. This was grasped with a single-tooth tenaculum. 1% lidocaine with epinephrine was used to inject the cervix circumferentially. Using Lugol's solution, the abnormal areas were highlighted. This is mostly a mass versus atypia of the anterior cervix, taking up most of the transformation zone. A 15 mm angled LEEP tool was used. And initially cut entering at approximate 12:00. This was rotated circumferentially, but part way through, the abnormal area detached from the cervix. This raise concern for a polyp more than abnormal cells. As there was some Lugol's highlighted area to the cervix at approximately 6:00, additional pass with the conization total was performed and this was detached and sent to pathology. The cervix had a conical appearance with a small amount of bleeding. This was stopped with a ball cautery device. Monsel's was applied to the cervix. Hemostasis was noted. All instruments were removed from vagina and counts were correct. Patient was awake prior to leaving the OR and was taken the PACU in good condition.
[2023-06-23] MEDS ORDERED: oxyCODONE 5 MG TABLET ONE (16:10)
[2023-06-23] MEDS: oxyCODONE 5 MG TABLET PO PRN (16:11)
[2023-06-23 16:26] VITALS: BP 136/82
[2023-06-23] MEDS ORDERED: IBUPROFEN 600 MG TABLET PO SCH (18:00)
--- NOTE | 2023-06-23 18:06 | ANESTHESIA POST OP EVALUATION ---
Anesthesia Post Eval - Post Anesthesia Eval Vitals: Last Vital Signs Temp 36.5 C 06/23/23 16:25 Pulse 73 06/23/23 16:25 Resp 12 06/23/23 16:25 BP 136/82 H 06/23/23 16:25 Pulse Ox 98 06/23/23 16:25 O2 Flow Rate CV Function Including HR & BP: Stable Pain Control: Satisfactory Nausea & Vomiting: Negative Mental Status: Baseline Respiratory Status: Airway Patent Hydration Status: Satisfactory Anesthesia Complications: None
== END 2023-06-23 12:28 | disposition home or self-care (01) ==
LOC: SDS 12:27
PROVIDERS: ATTEND Obstetrics & Gynecology
PROC: 0UBC7ZX Excision of Cervix, Via Natural or Artificial Opening, Diagnostic (ICD-10-PCS; principal; 2023-06-23 14:00)
DX: D06.7 Carcinoma in situ of other parts of cervix (principal); I10 Essential (primary) hypertension
CPT/HCPCS: 57522; 81025; A9270; J3490; J7120